=== PATIENT | male | born 2000 | race Caucasian/White ===

== ENCOUNTER 2022-04-29 22:55 | Emergency (ER) | payer BC, MEDICAID ==
[~2022-04-29] VITALS: Ht 188 cm; Wt 122.8 kg
[2022-04-30 02:27] LABS: CLARITY URINE CLEAR (CLEAR); COLOR URINE YELLOW (YELLOW); KETONES URINE TRACE (NEGATIVE); LEUKOCYTE ESTERASE URINE NEGATIVE (NEGATIVE); NITRITE URINE NEGATIVE (NEGATIVE); OCCULT BLOOD URINE NEGATIVE (NEGATIVE); PH URINE 5.5 (4.5-8.0); PROTEIN URINE NEGATIVE (NEGATIVE); SPECIFIC GRAVITY URINE 1.037 (1.005-1.030)
[2022-04-30] MEDS ORDERED: IBUP-2030 MT (03:21)
[2022-04-30 03:42] VITALS: BP 112/85
== END 2022-04-30 03:42 | disposition home or self-care (01) ==
LOC: ER 22:55
DX: L72.0 Epidermal cyst (principal); Z88.0 Allergy status to penicillin
CPT/HCPCS: 76870; 81003; 93976; 99284